=== PATIENT | female | born 1950 | race Caucasian/White ===

== ENCOUNTER 2016-04-23 16:19 | Outpatient (CLI) | payer MEDICARE, OTHER | END 2016-04-23 16:20 | LOC: LABRHC 16:19 | PROVIDERS: ATTEND Family Medicine | DX: Z01.419 Encounter for gynecological examination (general) (routine) without abnormal findings (principal) | CPT/HCPCS: 88148; G0143 ==

== ENCOUNTER 2016-04-24 07:22 | Outpatient (CLI) | payer MEDICARE, OTHER ==
[2016-04-24 07:50] LABS: BASOPHILS % 0.3 (0.0-1.5); EOSINOPHILS % 2.4 % (0.0-6.8); LYMPHOCYTES # 0.8 # k/uL (0.6-4.0); MEAN CORPUSCULAR HEMOGLOBIN 29.3 pg (28.0-34.0); MONOCYTES # 0.2 # k/uL (0.0-0.9); MONOCYTES % 5.2 % (0.0-11.0); NEUTROPHILS # 2.6 # k/uL (1.4-7.7)
[2016-04-24 08:23] LABS: eGFR (African) > 60; eGFR (Non-African) > 60
== END 2016-04-24 07:23 ==
LOC: LAB 07:22
PROVIDERS: ATTEND Family Medicine
DX: Z01.419 Encounter for gynecological examination (general) (routine) without abnormal findings (principal); I10 Essential (primary) hypertension; E78.00 Pure hypercholesterolemia, unspecified; E03.9 Hypothyroidism, unspecified
CPT/HCPCS: 36415; 80053; 80061; 84443; 85025

== ENCOUNTER 2016-06-01 12:53 | Emergency (ER) | payer MEDICARE, OTHER ==
--- NOTE | 2016-06-01 13:16 | ED Physician Documentation ---
Chest Pain - HISTORIAN Historian: patient - HPI Chief Complaint: General Adult Onset: days ago (yesterday) Timing: gradual onset Duration: constant Last known Well Date: 05/31/16 Last Known Well Time: 08:00 Last known Well Code/Unknown Code: Unknown Context: other (unknown) Severity: moderate Quality: aching Chest Pain Signs/Symptoms: denies: nausea, vomiting, dyspnea, tachypnea, tachycardia, hypotension, palpitations, weakness Worsened By: deep breaths, exertion, movement Relieved By: rest Further Comments: yes (Patient states that she hs been having more pain then usual related to her fibromyalgias. Yesteday has been having pain in the right knee area. This AM started to have some pain in the right shoulder area and it has moved into the right chest area. Worse with deep breathing and movement. Has been under treatment for respiratory illness.) - ROS CONST: none, recent injury (brochitis). denies: fever, chills - PAST HX PR risk factors: CHF, other (fibromyalgia, generalized OA, hypothyroidism, Allergic rhinnitis. ) DVT/PE Risk Factors: none. denies: leg swelling, bedridden, prior DVT GI disease: none Lung disease: none Surgeries/Procedures: other (gastric bypass, carpal tunnel release, Rotator cuff repair, TKR, BTL) Immunizations: referred to PCP Allergies/Adverse Reactions: Allergies Allergy/AdvReac Type Severity Reaction Status Date / Time morphine AdvReac Intermediate itching Verified 06/01/16 13:12 - SOCIAL HX Smoking History: non-smoker Alcohol Use: none - FAMILY HX Family HX: CAD over 55 (father and siblings) - REVIEWED ASSESSMENTS Nursing Assessment Reviewed: No Vitals Reviewed: No Progress - EKG/XRAY/CT EKG: NSR (mild sinus tachycardia), no ST T wave changes ED Results Lab/Radiology - Radiology Radiology Impressions: Chest x-ray: Rib x-ray: Chest Pain Physical Exam - EXAM General Appearance: moderate distress EENT: eye inspection normal, ENT inspection normal Neck: nml inspection, no carotid bruit, JVD present. No: lymphadenopathy Respiratory: no resp. distress, nml breath sounds, resp.distress, manifests distinct pain on movement, right, splinting, other (tenderness to palpation of the right upper anterior chest wall, pain with compression of chest wall) CVS: reg. rate & rhythm, no murmur, no gallop, no friction rub, pulses full, pulses equal Abdomen: soft, no organomegaly, normal bowel sounds, no distension, other ( small inscision hernia). No: guarding Skin: warm/dry, normal color Extremities: non-tender, normal range of motion, no evidence of injury, no edema Neuro: oriented X3, CN's nml as tested Discharge Clincal Impression: Acute chest wall pain, Anemia, Elevated LFTs Referrals: Juventino Garcias MD [Primary Care Provider] - 2 Days Additional Instructions: Home. continue with your current medications. To make appointment to see Dr Garcias about further workup of you elevated liver tests. Warm compress to the area of pain.Take some Aleve or Ibuprofen as needed for pain. Condition: Stable Disposition: 01 HOME, SELF-CARE Decision to Admit: NO Date of Decison to Admit: 06/01/16 Decision Time: 13:59
[2016-06-01] MEDS ORDERED: KETOROLAC TROMETHAMINE 30 MG/1ML VIAL IVP ONE (13:19)
[2016-06-01 13:41] LABS: BASOPHILS % 0.3 (0.0-1.5); EOSINOPHILS % 1.9 % (0.0-6.8); LYMPHOCYTES # 0.7 # k/uL (0.6-4.0); MEAN CORPUSCULAR HEMOGLOBIN 29.6 pg (28.0-34.0); MONOCYTES # 0.3 # k/uL (0.0-0.9); MONOCYTES % 4.7 % (0.0-11.0); NEUTROPHILS # 4.4 # k/uL (1.4-7.7)
[2016-06-01 14:02] LABS: eGFR (African) > 60; eGFR (Non-African) > 60
[2016-06-01 14:52] VITALS: BP 115/66
--- NOTE | 2016-06-02 07:23 | Diagnostic Imaging Report ---
SCOOTER LUNA~ [facility] [address] [facility] [address] [place] [address]. [id number] ~ ~ ~ ~ Report Submission Date: Jun 01, 2016 2:05:45 PM MANAGER IMAGE Patient ~ Study Name: CARL FIELDS ~ Date: Jun 01, 2016 1:37:25 PM MANAGER IMAGE ~ Modality Type: CR Gender: F ~ Description: CHEST : 54 ~ Institution: [facility] Physician: SCOOTER LUNA ~ ~ ~ ~ Chest - two views Clinical history: ~Right-sided chest pain. Findings: ~Examination of the chest in PA and lateral views demonstrates the lungs to be clear. ~The cardiac silhouette is prominent and the aorta is atherosclerotic. ~Degenerative changes are seen in the shoulders and thoracic vertebrae. Impression: 1. ~Aortic atherosclerosis. 2. ~No active disease. ~ Electronically signed on Jun 01, 2016 2:05:45 PM MANAGER IMAGE by: Bob MOJICA
--- NOTE | 2016-06-02 07:24 | Diagnostic Imaging Report ---
SCOOTER LUNA~ [facility] [address] [facility] [address] [place] [address]. [id number] ~ ~ ~ ~ Report Submission Date: Jun 01, 2016 2:07:01 PM AMERICAN HISTORY TEACHER Patient ~ Study Name: CARL FIELDS ~ Date: Jun 01, 2016 1:34:57 PM AMERICAN HISTORY TEACHER ~ Modality Type: CR Gender: F ~ Description: CHEST : 54 ~ Institution: [facility] Physician: SCOOTER LUNA ~ ~ ~ ~ Right ribs - three views Clinical history: ~Right anterior chest wall pain. Findings: ~Examination of the right rib cage in AP, oblique and coned down views of the lower ribs fails to demonstrate evidence of fracture. ~There is no pneumothorax. ~Degenerative changes are seen in the right shoulder and the thoracic vertebrae. Impression: 1. ~No fracture. ~ Electronically signed on Jun 01, 2016 2:07:01 PM AMERICAN HISTORY TEACHER by: Bob MOJICA
== END 2016-06-01 14:49 | disposition home or self-care (01) ==
LOC: ED 12:53
DX: R07.89 Other chest pain (principal); D64.9 Anemia, unspecified
CPT/HCPCS: 71020; 71100; 80053; 82150; 84484; 85025; 93005; J1885; 99283; 99284; S1016

== ENCOUNTER 2016-06-04 15:31 | Outpatient (CLI) | payer MEDICARE, OTHER ==
[2016-06-04 15:49] LABS: BASOPHILS % 0.4 (0.0-1.5); LYMPHOCYTES # 0.9 # k/uL (0.6-4.0); MEAN CORPUSCULAR HEMOGLOBIN 29.1 pg (28.0-34.0); MONOCYTES # 0.2 # k/uL (0.0-0.9); MONOCYTES % 5.1 % (0.0-11.0); NEUTROPHILS # 2.5 # k/uL (1.4-7.7)
[2016-06-04 16:19] LABS: eGFR (African) > 60; eGFR (Non-African) > 60
== END 2016-06-04 15:32 ==
LOC: LAB 15:31
PROVIDERS: ATTEND Family Medicine
DX: R74.0 Nonspecific elevation of levels of transaminase and lactic acid dehydrogenase [LDH] (principal); D64.9 Anemia, unspecified; R10.13 Epigastric pain
CPT/HCPCS: 36415; 80053; 82150; 85025

== ENCOUNTER 2016-06-18 11:49 | Outpatient (CLI) | payer MEDICARE, OTHER | END 2016-06-18 11:50 | LOC: CARD 11:49 | PROVIDERS: ATTEND Internal Medicine Cardiovascular Disease | DX: Z82.49 Family history of ischemic heart disease and other diseases of the circulatory system (principal) | CPT/HCPCS: G0463 ==

== ENCOUNTER 2016-06-25 11:41 | Outpatient (CLI) | payer MEDICARE, OTHER | END 2016-06-25 11:42 | LOC: CARD 11:41 | PROVIDERS: ATTEND Internal Medicine Cardiovascular Disease | DX: R07.9 Chest pain, unspecified (principal) | CPT/HCPCS: 93350; G0463 ==

== ENCOUNTER 2018-03-12 07:09 | Emergency (ER) | payer OTHER ==
--- NOTE | 2018-03-12 07:30 | ED Physician Documentation ---
General Adult - HISTORIAN Historian: patient - HPI Stated Complaint: bodyaches Chief Complaint: General Adult Additional Information: Patient presents to ED with a 12 hour history of bodyaches worsening since last night. She just finished a round of antibiotics (Augementin) for bronchitis yesterday. Patient reports chills, bodyaches, joint pain (knees), headache since last night. Today she was unable to walk due to the pain in her knees. She reports history of arthritis, fibromyalgia, osteoporosis, slipped discs in her neck. She denies fever, nausea, vomiting, diarrhea or abdominal pain. Onset: hours (12) Timing: still present Severity: mild Further Comments: no - ROS CONST: denies: fever EYES/ENT: denies: sore throat, nasal drainage, nasal congestion CVS/RESP: denies: chest pain, shortness of breath GI/: denies: abdominal pain, vomiting, diarrhea MS/SKIN/LYMPH: joint pain NEURO/PSYCH: headache - PAST HX Past History: other (fibromyalgia) Other History: none Surgeries/Procedures: other (ortho) Allergies/Adverse Reactions: Allergies Allergy/AdvReac Type Severity Reaction Status Date / Time morphine AdvReac Intermediate itching Verified 03/12/18 07:24 Home Medications: Ambulatory Orders Medication Instructions Recorded Cetirizine HCl 10 mg PO DAILY u2 01/19/18 Duloxetine HCl 60 mg PO DAILY 01/19/18 Ergocalciferol (Vitamin D2) 50,000 unit PO Q7D av 01/19/18 [Vitamin D2] Mirtazapine 15 mg PO HS u2 01/19/18 Multivitamin [Multi-Vitamin Daily] 1 each PO DAILY u2 01/19/18 Pantoprazole Sodium 40 mg PO DAILY u2 01/19/18 predniSONE [Deltasone] 10 mg PO DAILY #20 tablet 03/12/18 - SOCIAL HX Smoking History: non-smoker Alcohol Use: none Drug Use: none - FAMILY HX Family History: No - VITAL SIGNS Vital Signs: Vital Signs Temp Pulse Resp BP Pulse Ox 115/66 06/01/16 14:49 - REVIEWED ASSESSMENTS Nursing Assessment Reviewed: Yes Vitals Reviewed: Yes Progress - Results/Orders Results/Orders: Influenza A/B - negative. ED Results Lab/Radiology - Radiology Radiology Impressions: Examination: PA and lateral chest. History: Evaluate lung ortega. Comparison exam: None provided. Findings: PA and lateral views of the chest demonstrates a normal cardiac and mediastinal silhouette. Chronic interstitial changes. No focal infiltrate. No blunting of the costophrenic margins. Osseous structures are appropriate for age. Impression: No acute pulmonary process. Electronically signed on Mar 12, 2018 8:11:18 AM INSPECTOR EYEGLASS by: Sunil Alejandre - Orders Orders: ED Orders Category Date Time Status Place IV Lock 1T Care 03/12/18 07:18 Ordered CHEST 2VIEW [RAD] Stat Exams 03/12/18 Ordered CBC/PLATELET/DIFF Routine Lab 03/12/18 Ordered CMP Routine Lab 03/12/18 Ordered INFLUENZA A&B Stat Lab 03/12/18 Uncollected General Adult Physical Exam - PHYSICAL EXAM GENERAL APPEARANCE: no distress EENT: NICOLAS NECK: normal inspection, supple RESPIRATORY: no resp distress, chest non-tender, breath sounds normal CVS: reg rate & rhythm ABDOMEN: soft, normal bowel sounds BACK: no CVA tenderness SKIN: warm/dry, normal color EXTREMITIES: non-tender, normal range of motion, no edema NEURO: oriented X3 Discharge Clincal Impression: Viral syndrome Prescriptions: predniSONE [Deltasone] 10 mg PO DAILY #20 tablet Referrals: Juventino Garcias MD [Primary Care Provider] - 2 Days Additional Instructions: 1. Tylenol and/or ibuprofen as needed for pain/fever 2. Drink plenty of fluids to stay well hydrated 3. Follow up with PCP within 3 days 4. Return to ED for new or worsening symptoms Condition: Stable Decision to Admit: NO Date of Decison to Admit: 03/12/18 Decision Time: 08:38
[2018-03-12] MEDS ORDERED: hydrALAZINE HCL 20 MG/1 ML IVP ONE (07:32)
[2018-03-12] MEDS ORDERED: methylPREDNISolone SOD SUCC 125 MG/2 ML VIAL IVP ONE (07:32)
[2018-03-12 07:55] LABS: MEAN CORPUSCULAR HEMOGLOBIN 29.3 pg (28.0-34.0)
[2018-03-12 07:56] LABS: BASOPHILS % 0.3 (0.0-1.5); EOSINOPHILS % 2.1 % (0.0-6.8); MONOCYTES % 4.2 % (0.0-11.0); NEUTROPHILS # 8.5 # k/uL (1.4-7.7)
[2018-03-12 08:32] LABS: eGFR (Non-African) > 60
[2018-03-12] MEDS ORDERED: KETOROLAC TROMETHAMINE 30 MG/1ML VIAL IVP ONE (08:51)
[2018-03-12 08:59] VITALS: BP 171/89
--- NOTE | 2018-03-12 09:40 | Diagnostic Imaging Report ---
JERRY BILLY [facility] [address] [facility] [address] [place] [address]. [id number] Report Submission Date: Mar 12, 2018 8:11:18 AM BARBERING TEACHER Patient Study Name: CARL FIELDS Date: Mar 12, 2018 7:32:00 AM BARBERING TEACHER Modality Type: DX Gender: F Description: CHEST : 54 Institution: [facility] Physician: JERRY BILLY Examination: PA and lateral chest. History: Evaluate lung ortega. Comparison exam: None provided. Findings: PA and lateral views of the chest demonstrates a normal cardiac and mediastinal silhouette. Chronic interstitial changes. No focal infiltrate. No blunting of the costophrenic margins. Osseous structures are appropriate for age. Impression: No acute pulmonary process. Electronically signed on Mar 12, 2018 8:11:18 AM BARBERING TEACHER by: Sunil MOJICA
== END 2018-03-12 08:57 | disposition home or self-care (01) ==
LOC: ED 07:09
DX: B34.9 Viral infection, unspecified (principal)
CPT/HCPCS: 36415; 71046; 80053; 85025; 87400; 96374; 96375; 99282; 99284; J0360; J1885; J2930; S1016

== ENCOUNTER 2018-03-30 10:30 | Outpatient (CLI) | payer OTHER | END 2018-03-30 10:33 | LOC: LAB 10:30 | PROVIDERS: ATTEND Family Medicine | DX: E55.9 Vitamin D deficiency, unspecified (principal); E03.9 Hypothyroidism, unspecified; E78.00 Pure hypercholesterolemia, unspecified | CPT/HCPCS: 36415; 80061; 82306; 84443 ==

== ENCOUNTER 2018-06-22 15:46 | Outpatient (CLI) | payer OTHER | END 2018-06-22 15:48 | LOC: LAB 15:46 | PROVIDERS: ATTEND Family Medicine | DX: E55.9 Vitamin D deficiency, unspecified (principal) | CPT/HCPCS: 36415; 82306 ==

== ENCOUNTER 2018-09-02 14:38 | Outpatient (CLI) | payer OTHER | END 2018-09-02 14:43 | disposition home or self-care (01) | LOC: LAB 14:38 | PROVIDERS: ATTEND Family Medicine | DX: M79.10 Myalgia, unspecified site (principal) | CPT/HCPCS: 36415; 85651 ==